=== PATIENT | male | born 1955 | race Caucasian/White ===

== ENCOUNTER 2016-08-29 20:27 | Emergency (ER) | payer OTHER ==
[~2016-08-29] VITALS: Ht 193 cm; Wt 119.7 kg
[2016-08-29 21:08] LABS: MCH 35.3 PG (29.0-34.0); MCHC 36.3 G/DL (30.0-36.0); MCV 97.3 FL (86-99); MEAN PLAT.VOLUME 9.5 uM^3 (9.0-12.4); PLATELET COUNT 68 K/uL (156-360); RBC DIS.WIDTH-CV 12.2 % (11.8-14.6); RBC DIS.WIDTH-SD 43.9 % (39-53); RED BLOOD COUNT 4.42 M/uL (4.00-5.50); WHITE BLOOD COUNT 4.3 K/uL (4.1-10.2)
[2016-08-29 21:18] LABS: CHLORIDE 99 mEq/L (99-109); POTASSIUM 3.9 mEq/L (3.7-5.4); SODIUM 141 mEq/L (136-147)
[2016-08-29 21:20] LABS: GLUCOSE 294 mg/dL (70-99)
[2016-08-29 21:22] LABS: ANION GAP 15 MEQ/L (2-14); TOTAL BILIRUBIN 3.1 mg/dL (0.0-1.0)
[2016-08-29 21:24] LABS: ALKALINE PHOSPHATASE 79 IU/L (3-129); GFR ESTIMATE (CALCULATED) > 59 mL/min/
[2016-08-29 21:25] LABS: UREA NITROGEN (BUN) 10 mg/dL (9-23)
[2016-08-29 21:27] LABS: LIPASE 26 U/L (1.0-51.0)
[2016-08-30 00:02] LABS: ADD MIUA? YES; BILIRUBIN SMALL; BLOOD NEGATIVE; COLOR AMBER ((YELLOW)); GLUCOSE (STRIP) 150; KETONES 20; LEUKOCYTES NEGATIVE; NITRITE NEGATIVE; PROTEIN (STRIP) >=500
[2016-08-30 00:23] LABS: BACTERIA 1+ /HPF; CASTS NONE SEEN /LPF; CRYSTALS NONE SEEN; EPITHELIAL CELLS NONE SEEN /HPF; MUCUS 3+ /LPF; RED BLOOD CELLS 0-5 /HPF (0-5); UCUL ADDED? NO; WHITE BLOOD CELLS 0-5 /HPF (0-5)
[2016-08-30 04:27] VITALS: BP 156/98
== END 2016-08-30 04:30 | disposition short-term general hospital (02) ==
LOC: EME 20:27
DX: K74.60 Unspecified cirrhosis of liver (principal); K76.6 Portal hypertension; K80.20 Calculus of gallbladder without cholecystitis without obstruction; K57.30 Diverticulosis of large intestine without perforation or abscess without bleeding; R79.89 Other specified abnormal findings of blood chemistry; R16.2 Hepatomegaly with splenomegaly, not elsewhere classified; F10.20 Alcohol dependence, uncomplicated; E11.65 Type 2 diabetes mellitus with hyperglycemia; I10 Essential (primary) hypertension; G89.29 Other chronic pain; M54.5 Low back pain; R11.2 Nausea with vomiting, unspecified; R10.32 Left lower quadrant pain
CPT/HCPCS: 71020; 74176; 76705; 80053; 81003; 83690; 85027; 99281; 99285; J2405; J7030